=== PATIENT | male | born 1990 | race American Indian/Alaskan Native ===

== ENCOUNTER 2019-02-22 04:27 | Emergency (ER) | payer SELFPAY ==
[2019-02-22 04:35] VITALS: BP 136/81
--- NOTE | 2019-02-22 08:36 | Emergency Department Report ---
Chief Complaint: Dental/Oral Stated Complaint: MOUTH PAIN/TOOTHACHE Time Seen by Provider: 02/22/19 08:02 - HPI History of Present Illness: This is a 28-year-old -Japanese male presents to emergency room with right dental pain. Patient reports molar #32 is coming in sideways precipitant 15th cause excruciating pain. Taking jmyi-sfz-afrobds pain medication without relief. He denies fever, chills, drooling, facial edema, or dysphagia. - ROS Review of Systems: HEENT: Dental pain - Exam Vital Signs: Vital Signs 02/22/19 04:31 Temperature 98.4 F Pulse Rate 60 Respiratory 18 Rate Blood Pressure 136/81 O2 Sat by Pulse 98 Oximetry Physical Exam: HEENT: #32 impacted and coming in horizontal, TTP, no gingival swelling MSE screening note: Focused history and physical exam performed. Due to findings the following was ordered: ED Medical Decision Making - Medical Decision Making This is a 28-year-old male that presents with right sided dental pain for 1 week. Patient is stable and was examined by me. Registration approach patient regarding copayment and patient refused. This is a nonemergent medical complaint. Patient given her referrals to follow up outpatient with the dentist. Dr. Bravo for pain management. Discussed plan with patient. Discharged home stable. Follow up with dentist. ED Disposition for MSE Disposition: MED SCREENING EXAM-LEFT Is pt being admited?: No Condition: Stable Instructions: Toothache (ED) Additional Instructions: Follow-up with a dentist from the list provided below. I have also provided internal medicine for management of pain. Take pftq-[id number]-pgtrdqk Tylenol, naproxen, or ibuprofen for pain. Referrals: MRECY BRAVO MD [Staff Physician] - 3-5 Days [facility] [Outside] - 3-5 Days [facility] [Outside] - 3-5 Days [facility] [Outside] - 3-5 Days Forms: Work/School Release Form(ED) Time of Disposition: 08:36
== END 2019-02-22 08:45 | disposition left against medical advice (07) ==
LOC: ED 04:27
DX: K08.89 Other specified disorders of teeth and supporting structures (principal)
CPT/HCPCS: 99281